=== PATIENT | male | born 1970 | race Two or more races ===

== ENCOUNTER 2018-04-29 09:15 | Day surgery (SDC) | payer BC ==
[~2018-04-29] VITALS: Ht 185.4 cm; Wt 92.5 kg
[~2018-04-29 09:15] MED LIST: DILT180C52 PO; METO1TAB9 PO; OMEP20CA74 PO; RIV15T PO
[2018-04-29] MEDS ORDERED: LIDOCAINE 2%HCL (LOCAL ANESTH.) INJ 20ML MDV ONE (09:43)
[2018-04-29] MEDS ORDERED: ceFAZolin 1GM/50ML 50 ML IV ONE (10:27)
[2018-04-29] MEDS ORDERED: MIDAZOLAM HCL 1MG/1ML-2 ML VIAL ONE (10:27)
[2018-04-29] MEDS ORDERED: fentaNYL CITRATE 100 MCG/2 ML VL ONE (10:27)
[2018-04-29] MEDS ORDERED: ACETAMINOPHEN 500 MG TAB PO PRN (11:30)
[2018-04-29] MEDS ORDERED: ONDANSETRON HCL 4 MG/2 ML VIAL IV PRN (11:30)
[2018-04-29] MEDS ORDERED: NITROGLYCERIN 0.4 MG SL TAB SL PRN (11:30)
[2018-04-29] MEDS ORDERED: HYDROcodone-ACET 5/325MG TAB PO PRN (11:30)
== END 2018-04-29 13:20 | disposition home or self-care (01) ==
LOC: CATH 09:15
PROVIDERS: ATTEND Specialist
DX: I48.91 Unspecified atrial fibrillation (principal); R00.2 Palpitations; I11.0 Hypertensive heart disease with heart failure; I50.9 Heart failure, unspecified; Z79.899 Other long term (current) drug therapy
CPT/HCPCS: 93005; 93656; A6257; C1733; C1893; C1894; J0690; J1644; J2250; J3010; J7030; 99152; 99153